=== PATIENT | female | born 1990 | race Two or more races ===

== ENCOUNTER 2022-03-18 09:20 | Emergency (ER) | payer OTHER ==
[~2022-03-18] VITALS: Ht 162.6 cm; Wt 125.6 kg
[2022-03-18 09:26] VITALS: BP 96/51
--- NOTE | 2022-03-18 09:44 | NUR ---
31/F PRESENTS TO ED WITH C/O LOWER ABDOMINAL PAIN X2 WEEKS RADIATING TO HER LOWER BACK. REPORTS FEELING A "LUMP" ON RIGHT LOWER ABDOMEN 1 WEEK AGO, REPORTS TAKING MOTRIN WITH NO RELIEF. 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 PAITENT DENIES N/V, OR URINARY SYMPTOMS.
[2022-03-18] MEDS ORDERED: KETOROLAC 60 MG/2 ML VIAL IM ONE (10:30)
--- NOTE | 2022-03-18 10:40 | NUR ---
PT TAKEN TO CT VIA WHEELCHAIR
--- NOTE | 2022-03-18 10:50 | NUR ---
PT RETURNED FROM CT VIA WHEELCHAIR
[2022-03-18 11:17] VITALS: BP 117/71
[2022-03-18] MEDS ORDERED: TRAM50TA1 PO (11:29)
[2022-03-18] MEDS ORDERED: MAGN296S48 PO (11:29)
--- NOTE | 2022-03-18 11:49 | NUR ---
Patient discharged with v/s stable. Written and verbal after care instructions FOR ABDOMINAL PAIN given and explained. Patient alert, oriented and verbalized understanding of instructions. Ambulatory with steady gait. All questions addressed prior to discharge. ID band removed. Patient advised to follow up with PMD. Rx of CITROMA AND TRAMADOL given. Opportunity to ask questions provided and answered.
--- NOTE | 2022-03-18 11:50 | NUR ---
The patient's care was reviewed and supervised by Mamie Hernandez RN.
== END 2022-03-18 11:49 | disposition home or self-care (01) ==
LOC: MED 09:20
DX: R10.31 Right lower quadrant pain (principal); E66.9 Obesity, unspecified; Z79.899 Other long term (current) drug therapy; Z68.42 Body mass index [BMI] 45.0-49.9, adult
CPT/HCPCS: 74176; 81002; 81025; 96372; 99284; J1885

== ENCOUNTER 2022-07-24 05:40 | Emergency (ER) | payer OTHER ==
[~2022-07-24] VITALS: Ht 165.1 cm; Wt 127.5 kg
[~2022-07-24 05:40] MED LIST: MAGN296S48 PO; TRAM50TA1 PO
[2022-07-24 05:55] VITALS: BP 114/69
--- NOTE | 2022-07-24 06:01 | NUR ---
PT AMBULATED TO ED 12, REPORT GIVEN TO NADIA NARAYAN
--- NOTE | 2022-07-24 06:10 | NUR ---
32/F BIB SELF C/C MASOUD LOWER BACK PAIN RAD TO LOWER ABDOMEN X MONTH. +NAUSEA, URINARY FQ, INCREASED THRIST. PAIN IS 6/10 "PRESSURE AND PUSHING INSIDE OF ME" DENIES FEVER, CHILLS. PATIENT REPORTS FEELING TIRED. PATIENT TOOK IBUPROFEN @1AM WITH SOME RELIEF. PMHX ASTHMA NKA
--- NOTE | 2022-07-24 06:13 | NUR ---
Dr. Juárez examining patient.
[2022-07-24] MEDS ORDERED: ACET-8386 PO (06:25)
[2022-07-24] MEDS ORDERED: NITR100C7 PO (06:25)
--- NOTE | 2022-07-24 06:36 | NUR ---
Patient discharged with v/s stable. Written and verbal after care instructions given and explained. Patient alert, oriented and verbalized understanding of instructions. Ambulatory with steady gait. All questions addressed prior to discharge. ID band removed. Patient advised to follow up with PMD. Rx of HYDROCODONE/ACETAMINOPHEN AND MACROBID given.
[2022-07-24 06:51] LABS: APPEARANCE,URINE CLEAR (CLEAR); BILIRUBIN,URINE NEGATIVE (NEGATIVE); BLOOD, URINE NEGATIVE (NEGATIVE); COLOR,URINE YELLOW (YELLOW); LEUKOCYTE ESTERASE ,URINE NEGATIVE (NEGATIVE); NITRITE, URINE NEGATIVE (NEGATIVE); PH,URINE 6.5 (5.0-9.0); UGLUCOSE NEGATIVE (NEGATIVE)
== END 2022-07-24 06:36 | disposition home or self-care (01) ==
LOC: MED 05:40
DX: M54.9 Dorsalgia, unspecified (principal); F41.9 Anxiety disorder, unspecified; F12.90 Cannabis use, unspecified, uncomplicated; Z79.899 Other long term (current) drug therapy
CPT/HCPCS: 81003; 81025; 82948; 87086; 99283

== ENCOUNTER 2022-09-10 07:48 | Emergency (ER) | payer OTHER ==
[~2022-09-10] VITALS: Ht 165.1 cm; Wt 122.9 kg
[~2022-09-10 07:48] MED LIST changes: +ACET-8386 PO; +NITR100C7 PO; +TRAM-748 PO; -TRAM50TA1 PO
[2022-09-10 07:54] VITALS: BP 130/59
--- NOTE | 2022-09-10 08:12 | NUR ---
COVID, FLU SWABS DONE.
[2022-09-10] MEDS ORDERED: ALBUTEROL SULFATE/IPRATROPIU 3 ML SOL IH ONE (11:20)
--- NOTE | 2022-09-10 11:22 | NUR ---
neb tx started in [facility], lungs bl clear, 02 stauration 98% prior to tx
[2022-09-10] MEDS ORDERED: PRED20TA5 PO (11:38)
[2022-09-10] MEDS ORDERED: PROM118S5 PO (11:38)
[2022-09-10] MEDS ORDERED: ALBU0.0912 IH (11:38)
[2022-09-10 11:59] VITALS: BP 143/90
--- NOTE | 2022-09-10 12:01 | NUR ---
Patient discharged with v/s stable. Written and verbal after care instructions BOUT ASTHMA AND VIRAL ILLNESS given and explained. Patient alert, oriented and verbalized understanding of instructions. Ambulatory with steady gait. All questions addressed prior to discharge. ID band removed. Patient advised to follow up with PMD. Rx of ALBUTEROL, PREDNISONE, PROMETHAZINE DM given. Patient educated on indication of medication including possible reaction and side effects. Opportunity to ask questions provided and answered.
== END 2022-09-10 12:01 | disposition home or self-care (01) ==
LOC: MED 07:48
DX: J06.9 Acute upper respiratory infection, unspecified (principal); Z20.822 Contact with and (suspected) exposure to COVID-19; J45.901 Unspecified asthma with (acute) exacerbation; Z79.899 Other long term (current) drug therapy
CPT/HCPCS: 94640; 99283